=== PATIENT | female | born 1975 ===

== ENCOUNTER 2016-12-20 08:48 | Emergency (ER) | payer OTHER ==
[2016-12-20 09:24] VITALS: BP 134/93
[2016-12-20] MEDS ORDERED: Albuterol HFA INHALER* 8 gm MDI INH ONE (10:41)
[2016-12-20] MEDS ORDERED: hydrOXYzine HCL TAB* 25 MG PO ONE (10:47)
[2016-12-20 11:44] LABS: EBV Response YES
[2016-12-20 16:58] LABS: Mono Internal Control QC Line Present
[2016-12-21 11:49] LABS: EBV Capsid Ag IgG Ab Positive (Negative); EBV Capsid Ag IgM Ab Negative (Negative)
[2016-12-21 14:20] LABS: Immunoglobulin G 3150 mg/dL (767 - 1590)
--- NOTE | 2017-01-20 23:11 | UC ---
Mónica Licea Matthew, scribed for Susan Ibrahim MD on 12/20/16 at 1043 . Headache HPI - HPI Summary HPI Summary: A 41 y/o female presents to with an occipital headache since last night. The patient states that she has been ill for the past 2 weeks. She began taking HTN medication for the past 2 days. She noticed that her BP was elevated 2 days ago and took Levalodipine and Candesartan Cilexetil; however, the BP wasn't improving, so she presented to today. Associated symptoms include sore throat , fever, and fatigue. The patient also had chest tightness with deep breaths. She's also c/o of cervical spine pain for the past 9 months and believes she was diagnosed with a bone spur. The patient does not speak [place] well and her friend is translating for her. - History Of Current Complaint Chief Complaint: UCGeneralIllness Stated Complaint: SPINE ISSUE,HIGH BP Hx Obtained From: Patient Hx Last Menstrual Period: 11/26/16 Onset/Duration: Lasting Days, Still Present Onset Of Symptoms: Still Present Timing: Constant Character: Typical Headache Location of Headache: Occipital Associated Signs And Symptoms: Positive: Fever. Negative: Neck Stiffness - Allergies/Home Medications Allergies/Adverse Reactions: Allergies Allergy/AdvReac Type Severity Reaction Status Date / Time No Known Allergies Allergy Verified 12/20/16 09:23 Home Medications: Home Medications Candesartan Cilexetil 4 mg PO 12/20/16 [History] Esomeprazole Magnesium [Nexium 24Hr] 20 mg PO 12/20/16 [History] Levalodipine 12/20/16 [History] Pseudoephedrine HCL ER TAB* [Sudafed 12 Hour*] 120 mg PO BID 12/20/16 [History Confirmed 12/20/16] PMH/Surg Hx/FS Hx/Imm Hx Cardiovascular History Of: Reports: Hypertension - Surgical History Surgical History: None - Family History Known Family History: Positive: Hypertension - Father, Brothers - Social History Alcohol Use: None Substance Use Type: None Smoking Status (MU): Never Smoked Tobacco Review of Systems Constitutional: Fever, Fatigue Skin: Negative Eyes: Negative ENT: Sore Throat Respiratory: Negative Cardiovascular: Negative Gastrointestinal: Negative Genitourinary: Negative Motor: Negative Neurovascular: Negative Musculoskeletal: Myalgia - chronic cervical spine pain Neurological: Headache All Other Systems Reviewed And Are Negative: Yes Physical Exam Triage Information Reviewed: Yes Appearance: Well-Nourished Vital Signs: Initial Vital Signs Temp 98.3 F 12/20/16 09:13 Pulse 114 12/20/16 09:13 Resp 16 12/20/16 09:13 BP 134/93 12/20/16 09:13 Pulse Ox 99 12/20/16 09:13 Vital Signs Reviewed: Yes Eyes: Positive: Conjunctiva Clear ENT: Positive: Pharyngeal erythema - posteriorly, Other: - hinson, dull retracted TM's bilaterally; mild cerumen in the EAC bilateral; uvula midline Neck: Positive: Supple, Nontender Respiratory: Positive: Chest non-tender, No respiratory distress, No accessory muscle use, Wheezing - expiratory wheezing in the left base Cardiovascular: Positive: RRR, No Murmur, Pulses Normal Abdomen Description: Positive: Nontender, No Organomegaly, Soft Bowel Sounds: Positive: Present Musculoskeletal Exam: Normal Musculoskeletal: Positive: Strength Intact Neurological Exam: Normal - nonfocal, grossly intact Psychological Exam: Normal - conversing easily and appropriately Skin Exam: Normal - no visible or reported rash Headache Course/Dx - Course Course Of Treatment: no new problems in CCC. Reviewed coa and f/u recommendations. Questions answered as posed to the best of my ability. - Differential Dx/Diagnosis Provider Diagnoses: pharyngitis. htn. wheezing Discharge - Discharge Plan Condition: Stable Disposition: HOME Prescriptions: Azithromyxin JOSE D (NF) [Z-Jose D (Zithromax) 250 mg tabs #6] 2 tab PO .TODAY, THEN 1 DAILY #6 tab hydrOXYzine HCL TAB* [Atarax 25 MG TAB*] 25 mg PO TID PRN #20 tab PRN Reason: Congestion Patient Education Materials: Pharyngitis (ED), Hypertension (ED), Wheezing (ED) [place]errals: [facility] [place] [facility] [place] [facility] [place]] Non Staff,Doctor [Primary Care Provider] - Additional Instructions: Follow up with a primary care physician in the next 2 weeks. Please seek medical attention sooner for worse or new problems. Strep throat test negative Influenza test negative Monospot and EBV negative The documentation as recorded by the Mónica oliveira Matthew accurately reflects the service I personally performed and the decisions made by me, Susan Ibrahim MD.
== END 2016-12-20 11:29 | disposition home or self-care (01) ==
LOC: UCEAST 08:48
DX: J02.9 Acute pharyngitis, unspecified (principal); R06.2 Wheezing; I10 Essential (primary) hypertension; R50.9 Fever, unspecified; R53.83 Other fatigue
CPT/HCPCS: 36415; 82784; 86308; 86664; 86665; 87502; 87651; 99203; A9270-GY; G0463